=== PATIENT | female | born 1985 | race Caucasian/White ===

== ENCOUNTER 2016-07-15 15:20 | Emergency (ER) | payer OTHER | END 2016-07-15 19:00 | disposition home or self-care (01) | LOC: FER 15:20 | DX: S13.4XXA Sprain of ligaments of cervical spine, initial encounter (principal); S46.912A Strain of unspecified muscle, fascia and tendon at shoulder and upper arm level, left arm, initial encounter; S46.911A Strain of unspecified muscle, fascia and tendon at shoulder and upper arm level, right arm, initial encounter; Z88.1 Allergy status to other antibiotic agents; V49.50XA Passenger injured in collision with unspecified motor vehicles in traffic accident, initial encounter; Y92.410 Unspecified street and highway as the place of occurrence of the external cause | CPT/HCPCS: 72050; 72072; 73030 ==

== ENCOUNTER → 2020-12-29 | Day surgery (SDC) | payer OTHER ==
[~2020-12-29] VITALS: Ht 157.5 cm; Wt 81.6 kg
[~2020-12-29] MED LIST: AIMOVIG AU140 MG/1 M SC; ASCORBIC ACID500 MG PO; BACLOFEN 10MG T10 MG PO; CARAFATE1 GM PO; COLACE100 MG PO; DICLOFONO2.5 GM TOP; FEOSOL325 MG PO; IBUPROFEN800 M1 PO; IBUPROFEN800 MG PO; IMITREX100 MG PO; LEXAPRO 10MG TA10 MG PO; NURTEC ODT75 MG PO; PERCOCET 5-3251 EACH PO; PROAIR HFA8.5 GM INH; PROTONIX 40MG T40 MG PO; VITAMIN D3250 MC1 PO; VOLTAREN **OUT50 MG PO; ZINC50 M2 PO; ZOFRAN4 M1 PO
[2020-12-29 11:28] LABS: HCG (URINE) SCREEN NEGATIVE (NEGATIVE)
== END | disposition home or self-care (01) ==
LOC: FAS 09:58
PROVIDERS: Obstetrics & Gynecology
DX: D25.1 Intramural leiomyoma of uterus (principal); D25.2 Subserosal leiomyoma of uterus; K66.0 Peritoneal adhesions (postprocedural) (postinfection); F41.9 Anxiety disorder, unspecified; F31.60 Bipolar disorder, current episode mixed, unspecified; M54.2 Cervicalgia; G89.29 Other chronic pain; N71.1 Chronic inflammatory disease of uterus; N83.202 Unspecified ovarian cyst, left side; E66.9 Obesity, unspecified; Z97.5 Presence of (intrauterine) contraceptive device; Z68.34 Body mass index [BMI] 34.0-34.9, adult
CPT/HCPCS: 84703; 93005; J1100; J1170; J1885; J2250; J2405; J2704; J2710; J3010; J7120